=== PATIENT | female | born 1990 | race Caucasian/White ===

== ENCOUNTER 2020-09-30 18:55 | Inpatient (IN) | payer BC, MEDICAID, SELFPAY ==
[2020-09-30] VITALS (17 sets, daily range): BP systolic 105–127; BP diastolic 59–84; PULSE 86–115; RESP 17–18; TEMP 36.2–36.6; BMI 33.3
[2020-09-30] MEDS: miSOPROStol 100 mcg tablet 25 MCG VAGINAL (20:21)
[2020-09-30 20:27] LABS: Basophils % 0.5 %; Eosinophils % 0.5 %; Hematocrit 32.6 % (37.0-47.0); Hemoglobin 10.4 g/dL (11.5-15.3); Lymphocytes # 1.6 10^3/uL (0.8-4.8); Lymphocytes % 20.9 %; Mean Corpuscular HGB Conc 31.9 g/dL (30.0-36.0); Mean Corpuscular Hemoglobin 27.1 pg (28.0-34.0); Mean Corpuscular Volume 84.9 fL (81-99); Monocytes # 0.6 10^3/uL (0.2-0.9); Monocytes % 7.3 %; Neutrophils % 70.2 %; Nucleated Red Blood Cells % 0 %; Platelet Count 263 10^3/cmm (130-400); Red Blood Count 3.84 10^6/uL (4.1-5.3); Red Cell Distribution Width 14.6 % (12.1-15.1); White Blood Count 7.8 10^3/uL (4.0-10.0)
[2020-10-01] VITALS (124 sets, daily range): BP systolic 95–168; BP diastolic 51–86; PULSE 68–187; TEMP 36.3–37.1; O2SAT 94–98
[2020-10-01] MEDS: lactated ringers 1,000 ML 999 ML IV ×2 (01:30→03:00)
--- NOTE | 2020-10-01 02:53 | P.ANESASSM_ITS ---
Pre-Anesthetic Assessment Pre-Anesthetic Assessment: Height/Weight: Height 1.63 m Weight 87.997 kg Temp Pulse Resp BP 97.3 F L 86 17 121/70 10/01/20 01:52 10/01/20 02:45 09/30/20 22:12 10/01/20 02:45 Preop Diagnosis: labor pains Proposed Procedure: epidural Was Beta Genaro taken within 24 hours: N/A Social: Social History: No alcohol and No tobacco Exam: Pre-Anes Outpt Exam: alert, oriented x 3, clear to auscultation bilaterally and regular rate & rhythm Airway: Submandibular: WNL Cervical ROM: WNL MP: 2 Dentition: Full Pulmonary: Pulmonary: None reported CV/HEM: CV/HEM: None reported : : None reported Hepatic: Hepatic: None reported GI: GI: None reported Metabolic: Metabolic: None reported Musc/skel: Musc/skel: None reported Neuropsych: Neuropsych: None reported Anesthetic Plan: ASA status: 2 Anesthesia: Regional (specify below) Risk of > 500 ml blood loss (7ml/kg in children): No Meds/Allergies Current Medications: Current Medications Generic Name Dose Route Start Last Admin Trade Name Freq PRN Reason Stop Dose Admin Lactated Ringer's 1,000 mls @ 999 m ls/hr 10/01/20 01:08 10/01/20 01:30 Lactated Ringers IV 999 mls/hr .Q1H1M PRN Administration See label comment s PFSH Anesthesia Female Reproductive History: : 2 Data Anesthesia CBC & Chem 7: 09/30/20 19:25 Other Labs: Laboratory Results - last 48 hr 09/30/20 19:25 WBC 7.8 RBC 3.84 L Hgb 10.4 L Hct 32.6 L MCV 84.9 MCH 27.1 L MCHC 31.9 RDW 14.6 Plt Count 263 MPV 12.0 H Neut % (Auto) 70.2 Lymph % (Auto) 20.9 [place] % (Auto) 7.3 Eos % (Auto) 0.5 Baso % (Auto) 0.5 Neut # (Auto) 5.50 Lymph # (Auto) 1.6 [place] # (Auto) 0.6 Eos # (Auto) 0.0 Baso # (Auto) 0.0 Nucleated RBC % (auto) 0 Nucleated RBCs # 0.0 Cardiac Studies: No Data to Display
--- NOTE | 2020-10-01 03:26 | P.ANES_ITS ---
Anesthesia Procedures Procedure/Date: 10/01/20 epidural Procedure Narrative: epidural complete, bolus given, epidural pump initiated with AMUSEMENT RIDE OPERATOR education given, vitals taken during procedure using OBIX system and satisfactory throughout, patient admits to decrease pain, report of procedure to OB RN Epidural: Time Out Performed: Yes Consents Signed: Procedure Consent Consent: requested by attending/covering physician, from patient, risks and benefits reviewed and patient agrees to proceed Lumbar Level: L3-L4 Epidural position: sitting Epidural procedure: sterile prep of area, 1% lidocaine to numb the area (3 mL), 18 g needle, negative for paresthesia passed, neg for paresthesia, test dose given, 1.5% xylocaine 1:200k epi (5 mL), 0.2% Ropivacaine bolus ml (5 mL), placed PCEA, no systemic response, sterile dressing applied, L.U.D. no apparent complications and 0.2% Ropiavacaine @ mls/hr (13 mL/hr)
[2020-10-01] MEDS: dextrose 5%-lactated ringers 1,000 ML 125 ML IV ×2 (04:33→13:03)
[2020-10-01] MEDS: oxytocin 30 UNIT/500 ML BAG IV (08:52)
[2020-10-01] MEDS: acetaminophen 325 mg Tablet 650 MG PO (10:40)
--- NOTE | 2020-10-01 19:54 | PM.DELIVERY ---
Delivery Note: Date of delivery: October 01, 2020 Pre-delivery diagnoses: 30-year-old 2 para 1-0-0-1 with an estimated gestational age of 39 weeks Post-delivery diagnoses: Status post spontaneous vaginal delivery Procedure: Spontaneous vaginal delivery Op report anesthesia: Epidural Estimated blood loss (mL): 200 Pre-Delivery Course: The patient presented to the hospital for induction the night prior to delivery. She was given Cytotec 25 mcg x 1. The following morning Pitocin was started. An epidural was placed. An amniotomy was performed. Patient then progressed to complete without difficulty. The patient's mother had an unremarkable . Her blood type was O+. Otherwise the remainder of her labs were within normal limits. Her GBS status is negative. She is Covid negative. Her infectious disease labs are within normal limits. Her drug screen was negative. She was found to be rubella nonimmune. Delivery: DELIVERY: The patient progressed to complete without difficulty. She delivered a female with a weight of 7 pounds 8 ounces with Apgars of 7, 8, 9. The baby was delivered from the SAMAN position. She was then placed on the mother's abdomen. The cord was then clamped and cut. There was a nuchal cord x1. The baby was delivered through the cord. There was no meconium. The placenta and 3 vessel cord were delivered intact shortly thereafter. The perineum and vaginal vault were carefully examined. No lacerations were noted. Both the mother and the baby were in stable condition. Post-Delivery Status: Good Coding Level of Care Code Acute General Office Assistant for Sarahi Pham
[2020-10-01] MEDS: ibuprofen 800 mg tablet PO (21:24)
[2020-10-02] VITALS (9 sets, daily range): BP systolic 110–128; BP diastolic 55–75; PULSE 85–107; RESP 16–17; TEMP 35.9–36.8; O2SAT 96–99
--- NOTE | 2020-10-02 07:56 | PC.NURSE ---
BABY GIRL WAS DELIVERED AT 0. THIS NURSE IMMEDIATELY STIMULATED . 1930 WAS PALE IN COLOR. CRY WAS WEAK. THIS NURSE PERFORMED ADDITIONAL SUCTIONING WITH BULB SUCTION. SCORE WAS 7 AT THIS TIME. 1931 INFANT WAS TRANSFERRED TO [facility] FOR FURTHER EVALUATION. UPON ARRIVAL AT [facility] WAS SUCTIONED WITH A DELEE. PRODUCING 3MLS OF THICK MUCOID SPUTUM. 1933 PULSE OX WAS PLACED ON INFANTS RIGHT HAND, SHOWING OXYGEN SATURATION TO BE 70% AND FLOW-BY OXYGEN WAS INITIATED 1938 DELEE SUCTION PERFORMED AND PRODUCED ADDITIONAL 3ML OF MUCOID SUPTUM. 1942 FLOW BY WAS DISCONTINUED, INFANTS OXYGEN SATURATION WAS 85%. BABY WAS PLACED SKIN TO SKIN WITH MOM WITH CONTINUOUS PULSE OX STILL IN PLACE. 1951 THIS NURSE OBSERVED A SUDDEN DECLINE IN OXYGEN SATURATION, REACHING 60% WITH GOOD WAVE FORM ON PULSE OX. 1951 INFANT WAS TRANSFERRED BACK TO [facility] FOR FURTHER EVALUATION. DELEE SUCTIONING WAS PERFORMED. 1952 DR. MEYER IS AT BEDSIDE. RESPIRATORY WAS CALLED TO THE ROOM. CPAP WITH PEEP OF 5 WAS INITIATED, 60% O2 AT THIS TIME. OXYGEN SATURATION CLIMBS TO 99%. 1957 O2 IS DECREASED TO 30% WITH PEEP OF 5. OXYGEN SATURATION IS 97% 2001 RESPIRATORY IS AT BEDSIDE, CPAP CONTINUES. 2007 INFANT IS TRANSFERRED FROM ROOM TO NURSERY VIA RADIANT WARMER. 2008 ARRIVAL IN NURSERY. THIS NURSE, DR. MEYER, RESPIRATORY Ronnie CASTRO, AND Wilmar KATZ RN AT BEDSIDE. 2008 IS PLACED ON CPAP BY RESPIRATORY VIA NASAL CANNULA. PEEP 5, O2 24% 2012 98% OXYGEN SATURATION, 136 HEART RATE, O2 TITRATED TO 21% BY RESPIRATORY 2013 PEEP TITRATED TO 4 BY RESPIRATORY 2014 95% OXYGEN SATURATION, 139 HEART RATE, O2 21% PEEP 4 2015 PEEP TITRATED TO 5 BY RESPIRATORY, HEART RATE 143, OXYGEN SATURATION 96% 2017 81% OXYGEN SATURATION, O2 TITRATED TO 30% BY RESPIRATORY 2018 97% OXYGEN SATURATION, O2 TITRATED TO 21% BY RESPIRATORY 2021 94% OXYGEN SATURATION, O2 TITRATED TO 22% BY RESPIRATORY 2021 97% OXYGEN SATURATION, O2 TITRATED TO 21% BY RESPIRATORY 2022 70% OXYGEN SATURATION, 02 TITRATED TO 30% BY RESPIRATORY 2022 80% OXYGEN SATURATION, O2 TITRATED TO 35% BY RESPIRATORY 2023 100% OXYGEN SATURATION, 02 TITRATED TO 30% BY RESPIRATORY 2030 TEMP. 98.4 AXILLARY 2032 100 OXYGEN SATURATION, O2 TITRATED TO 26% BY RESPIRATORY 2035 BP 72/37 WITH MANUAL CUFF 2041 100 OXYGEN SATURATION, O2 TITRATED TO 21% BY RESPIRATORY 2119 98% OXYGEN SATURATION, PEEP TITRATED TO 4.5 BY RESPIRATORY 2141 98% OXYGEN SATURATION, PEEP TITRATED TO 4 BY RESPIRATORY 2142 PEEP TITRATED TO 3.5 BY RESPIRATORY 2209 OXYGEN SATURATION 97% PEEP TITRATED TO 3.5 BY RESPIRATORY 2239 OXYGEN SATURATION 98%, PEEP TITRATED TO 2 BY RESPIRATORY 2246 OXYGEN SATURATION 97%, PEEP TITRATED TO 1.5 BY RESPIRATORY 2258 OXYGEN SATURATION 98% PEEP TITRATED TO .5 BY RESPIRATORY 2300 CPAP DISCONTINUED 2318 WAS ABLE TO MAINTAIN OXYGEN SATURATION OF 96-99% INDEPENDENTLY 2319 INFANT IS PLACED ON PORTABLE CONTINUOUS PULSE OX. 2320 IS RETURNED TO ROOM, BANDS MATCHED AND PLACED SKIN TO SKIN WITH MOM.
--- NOTE | 2020-10-02 08:17 | ANE.PACU2 ---
Inpatient post-anesthesia follow up: Airway intact: Yes Vital signs: Temperature 98.3 F Pulse Rate 86 Respiratory Rate 17 Blood Pressure 111/65 Pulse Oximetry 95 Oxygen Delivery Me thod Room Air Oxygen Flow Rate Fraction of Inspir ed Oxygen Hydration adequate: Yes Nausea and vomiting: No Pain level: 2 Mental status: Baseline Additional Comments: No signs of infection at epidural site, urintating with out [place], no residual numbness/weakness, no complaints of headache
[2020-10-02] MEDS: docusate sodium 100 mg Capsule PO ×2 (09:27→18:18)
[2020-10-02] MEDS: ibuprofen 800 mg tablet PO ×2 (09:27→15:51)
[2020-10-02] MEDS: prenatal vitamin Capsule 1 CAP PO (09:27)
[2020-10-02 09:34] LABS: Hematocrit 29.3 % (37.0-47.0); Hemoglobin 9.1 g/dL (11.5-15.3); Mean Corpuscular HGB Conc 31.1 g/dL (30.0-36.0); Mean Corpuscular Hemoglobin 26.5 pg (28.0-34.0); Mean Corpuscular Volume 85.4 fL (81-99); Mean Platelet Volume 11.7 fL (7.4-10.4); Platelet Count 196 10^3/cmm (130-400); Red Blood Count 3.43 10^6/uL (4.1-5.3); Red Cell Distribution Width 14.7 % (12.1-15.1); White Blood Count 11.6 10^3/uL (4.0-10.0)
--- NOTE | 2020-10-11 13:35 | P.DS_ITS ---
Discharge Providers LEARNING AND DEVELOPMENT ASSISTANT Date of Admission: 09/30/20 18:55 Date of Discharge: 10/11/20 Attending Provider at Admission: Alec Teague MD Attending Provider at Discharge: Alec Teague MD Primary Care Provider: Alec Teague MD Diagnoses at Discharge Discharge Diagnosis (1) 39 weeks gestation of : Status: Acute (2) Spontaneous vaginal delivery: Status: Acute Reason for Visit Reason for Visit: Induction Hospital Course Hospital Course The patient's is a 30-year-old 2 female at 39 weeks who presented to the hospital for induction. Please see delivery note for details regarding her induction. Her delivery was unremarkable. Her course was also unremarkable. Her bleeding was within normal limits. Her pain was well controlled. There were no problems or complications . Information Peripartum Data: Delivery Method: Vaginal Physical Exam Narrative: EXAM NARRATIVE: The patient is alert. She appears comfortable. Her heart has a regular rate and rhythm with no murmurs appreciated. Lungs are clear to auscultation bilaterally. Her fundus is firm and below the umbilicus. Urinary Catheter Management^: Lopes: Cath Placed During This Visit: yes Reason for Continuing Indwelling Catheter: Required Immobilization for Trauma or Surgery or Anesthesia Urinary Catheter Date of Insertion: 10/01/20 Urinary Catheter Time of Insertion: 03:40 Discharge Data Vitals: Last Vital Signs Temp 97.8 F 10/02/20 20:55 Pulse 100 10/02/20 20:55 Resp 17 10/02/20 20:55 BP 128/62 10/02/20 20:55 Pulse Ox 97 10/02/20 15:49 Discharge Plan Discharge Patient Disposition: Home Prescriptions: Continued [id number] 1 mg Tablet 1 tab PO DAILY RF: 0 Discharge Orders: Discharge Order (Routine); Ordered 10/02/20 Ordered By: Alec Teague Referrals: Alec Teague MD [Primary Care Provider] - 6 Weeks (Please call tomorrow to make your [address] Teague.) Patient Instructions: Your 's Appearance (DC), OB Food/Drug Interaction Guide, OB Care at Home, OB Vaginal Deliveries Discharge Attestations LEARNING AND DEVELOPMENT ASSISTANT Time Spent in Discharge Care*: less than 30 min Coding Level of Care Code Acute Drapery Worker for Chg Fwd Diagnoses 39 weeks gestation of Z3A.39 Spontaneous vaginal delivery O80
== END 2020-10-02 20:57 | disposition home or self-care (01) | DRG 807 ==
PROVIDERS: Admitting Provider Family Medicine; Family Provider Family Medicine; PCP Family Medicine; Visit Provider Family Medicine
DX: O69.81X0 Labor and delivery complicated by cord around neck, without compression, not applicable or unspecified (principal); Z37.0 Single live birth; Z3A.39 39 weeks gestation of pregnancy
CPT/HCPCS: 12345; 36415; 51702; 59025; 59409; 85025; 85027; J2795